=== PATIENT | female | born 1975 | race Caucasian/White ===

== ENCOUNTER 2018-05-22 08:57 | Inpatient (IN) ==
[2018-05-22] MEDS ORDERED: Metoprolol Tartrate 25 MG Tablet PO SCH (09:58)
[2018-05-22] MEDS ORDERED: Chlorhexidine Gluconate 2% 1 Pack (2 Cloths) TOPICAL SCH (09:58)
[2018-05-22] MEDS ORDERED: Sodium Chlor 0.9% Inj 500 ML IV.SIG SCH (10:00)
[2018-05-22] MEDS ORDERED: ceFAZolin Inj 3,000 MG in Sodium Chlor 0.9% Inj 100 ML IV.SIG SCH (11:00)
[2018-05-22] MEDS ORDERED: Bupivacaine/Epinephrine 0.5% Inj 50 ML Vial ONE (14:26)
[2018-05-22] MEDS ORDERED: Phenylephrine/NS 1000 MCG/10ML Syringe IV.PUSH ONE (14:40)
[2018-05-22] MEDS ORDERED: Lidocaine PF 1% Inj 5 ML Syringe OTHER ONE (14:40)
[2018-05-22] MEDS ORDERED: Glycopyrrolate Inj 1 MG/5 ML Syringe IV.PUSH ONE (14:40)
[2018-05-22] MEDS ORDERED: Neostigmine Inj 5 MG/5 ML Syringe IV.PUSH ONE (14:40)
[2018-05-22] MEDS ORDERED: ceFAZolin 2 GM Premix Inj 2 GM/50 ML PIGGYBACK IV.SIG ONE (15:10)
[2018-05-22] MEDS ORDERED: Post-op Orders (for Pharmacy) OTHER STA (16:38)
[2018-05-22] MEDS ORDERED: diphenhydrAMINE HCl 12.5 MG/5 ML Elixir UDC PO PRN (16:38)
[2018-05-22] MEDS ORDERED: Naloxone Inj 0.4 MG/ML Vial IV.PUSH PRN (16:45)
[2018-05-22] MEDS ORDERED: Morphine Inj 30 MG/30 ML PCA.VIAL PCA PRN (16:45)
[2018-05-22] MEDS ORDERED: fentaNYL Citrate Inj 100 MCG/2 ML Ampul ONE (17:04)
[2018-05-22] MEDS ORDERED: *Ondansetron Inj 4 MG/2 ML Vial PERIprocedural Use ONLY ONE (17:06)
[2018-05-22] MEDS ORDERED: *Promethazine Inj 25 MG/ML Vial PERIprocedural use ONLY ONE (17:17)
[2018-05-22] MEDS ORDERED: Scopalamine 1.5 MG Patch T-DERMAL ONE (17:38)
[2018-05-22] MEDS ORDERED: Enoxaparin Inj 40 MG/0.4 ML Syringe SQ SCH (18:00)
[2018-05-22] MEDS: KCL 20 mEq/D5W/NaCl 0.45% Inj 1,000 ML IV.CONT SCH (18:24)
[2018-05-22] MEDS ORDERED: ceFAZolin 1 GM Premix Inj 1 GM/50 ML PIGGYBACK IV.SIG SCH (21:00)
[2018-05-23] MEDS: ceFAZolin 1 GM Premix Inj 1 GM/50 ML PIGGYBACK IV.SIG SCH ×3 (00:17→19:01)
[2018-05-23] MEDS: KCL 20 mEq/D5W/NaCl 0.45% Inj 1,000 ML IV.CONT SCH ×3 (02:56→17:18)
[2018-05-23 06:45] LABS: Baso % (Auto) 0.3 % (0.0-2.0); Eos % (Auto) 0.1 % (0.0-4.0); Hemoglobin 12.9 gm/dL (11.6-15.3); Lymph % (Auto) 18.4 % (9.0-44.0); Mean Corpuscular HGB Conc 34.8 % (32.0-36.0); Mean Corpuscular Hemoglobin 29.2 pg (27.0-34.0); Mean Corpuscular Volume 83.8 fL (80.0-100.0); Mean Platelet Volume 9.7 fL (7.0-11.0); Mono # (Auto) 0.8 th/mm3 (0.0-0.9); Neut # (Auto) 8.1 th/mm3 (1.8-7.7); Neut % (Auto) 74.2 % (16.0-70.0); Platelet Count 265 th/mm3 (150-450); Red Blood Count 4.41 mil/mm3 (4.00-5.30); Red Cell Distribution Width 13.9 % (11.6-17.2); White Blood Count 10.9 th/mm3 (4.0-11.0)
[2018-05-23 07:00] LABS: Calcium 8.5 mg/dL (8.5-10.1); Carbon Dioxide 28.5 meq/L (21.0-32.0); Magnesium 2.2 mg/dL (1.5-2.5)
--- NOTE | 2018-05-23 15:34 | P.PNGS ---
Subjective Patient reports: tolerating liquids well (denies SOB, palpitations or chest pain. Nausea and pain are well controlled. ) Physical Exam Vital signs: Vital Signs 05/22/18 16:57 05/22/18 17:00 05/22/18 17:15 Temperature 97.6 F Pulse Rate 66 65 58 L Respiratory Rate 10 L 11 L 15 Blood Pressure 123/59 L 115/59 L 119/56 L Pulse Oximetry 95 97 96 05/22/18 17:30 05/22/18 17:45 05/22/18 18:00 Temperature Pulse Rate 58 L 51 L 64 Respiratory Rate 15 20 20 Blood Pressure 114/55 L 109/59 L 117/56 L Pulse Oximetry 96 94 L 96 05/22/18 18:15 05/22/18 18:45 05/22/18 19:15 Temperature 97.8 F Pulse Rate 62 60 64 Respiratory Rate 18 18 18 Blood Pressure 112/58 L 118/55 L 113/57 L Pulse Oximetry 96 96 96 05/22/18 20:00 05/22/18 21:29 05/23/18 00:00 Temperature 97.3 F L 97.7 F Pulse Rate 53 L 68 Respiratory Rate 18 19 Blood Pressure 119/65 138/66 Pulse Oximetry 96 98 96 05/23/18 04:00 05/23/18 08:00 05/23/18 08:55 Temperature 98.1 F 98.6 F Pulse Rate 67 78 Respiratory Rate 19 16 Blood Pressure 140/65 116/65 Pulse Oximetry 94 L 93 L 93 L 05/23/18 11:40 Temperature 98.2 F Pulse Rate 49 L Respiratory Rate 16 Blood Pressure 131/63 Pulse Oximetry 99 Intake & Output 05/22/18 05/23/18 05/23/18 18:59 06:59 18:59 Intake Total 1300 / 1300 1820 / 1820 1150 / 1150 Balance 1300 / 1300 1820 / 1820 1150 / 1150 Weight 136.8 kg 141.1 kg Intake: IV 200 / 200 1400 / 1400 1150 / 1150 D5W/1/2NS + KCL 20 mEq Inj 1, 1000 / 1000 1000 / 1000 000 ML @ 125 mls/hr IV.CONT . Q8H LORNA Rx#:[id number] Ofirmev Inj 1,000 mg In 100 ml 100 / 100 100 / 100 @ 400 mls/hr IV.SIG STATISTICS TEACHER LORNA Rx#:[id number] Ancef 1 GM Premix Inj 1 gm In 100 / 100 50 ml @ 100 mls/hr IV.SIG Q8H LORNA Rx#:[id number] Flagyl 500 MG Inj 100 ML @ 200 100 / 100 200 / 200 mls/hr IV.SIG Q8H LORNA Rx#: [id number] Oral 420 / 420 Anesthesia Amount 1100 / 1100 Other: # Voids 1 Weight On Admission 3 kg - Constitutional no acute distress - Routine Neck Exam Present: supple - Routine Respiratory Exam Present: CTA bilaterally - Routine Cardiovascular Exam Present: RRR, S1, S2 - Routine Abdominal Exam Present: soft Comments: normal postoperative tenderness, laproscopic sites CDI Results - Labs 05/23/18 05:56 05/23/18 05:56 Laboratory Results - last 24 hr 05/23/18 05/23/18 05:56 05:56 WBC 10.9 RBC 4.41 Hgb 12.9 Hct 37.0 MCV 83.8 MCH 29.2 MCHC 34.8 RDW 13.9 Plt Count 265 MPV 9.7 Neut % (Auto) 74.2 H Lymph % (Auto) 18.4 [place] % (Auto) 7.0 Eos % (Auto) 0.1 Baso % (Auto) 0.3 Neut # (Auto) 8.1 H Lymph # (Auto) 2.0 [place] # (Auto) 0.8 Eos # (Auto) 0.0 Baso # (Auto) 0.0 WBC Differential . Differential Comment Auto diff final Sodium 140 Potassium 4.0 Chloride 103 Carbon Dioxide 28.5 Anion Gap 9 BUN 11 Creatinine 0.79 Estimated GFR 79 L Random Glucose 110 H Calcium 8.5 Magnesium 2.2 Assessment and Plan - Assessment (1) Gastric bypass status for obesity Code(s): Z98.84 - Bariatric surgery status Status: Acute Plan: Tolerating clear liquids well advance to 60 ml every 30 min. Ambulate at least four times today D/C JOB PRINTER pump transition to oral pain meds. (2) HTN (hypertension) Code(s): I10 - Essential (primary) hypertension Status: Chronic Plan: Controlled currently monitor. (3) Sleep apnea Code(s): G47.30 - Sleep apnea, unspecified Status: Chronic Plan: Continue use of home CPAP machine - Plan POD #1 laproscopic RNY Doing well. Code Status: full Discussed Condition With: patient Discharge Planning: tomorrow if doing well (2) HTN (hypertension) Qualifiers: Hypertension type: essential hypertension Qualified Code(s): I10 - Essential (primary) hypertension
[2018-05-23] MEDS: Acetaminophen-HYDROcodone 325/7.5 Liq 15 ML UDC PO PRN (18:23)
[2018-05-23] MEDS ORDERED: Enoxaparin Inj 40 MG/0.4 ML Syringe SQ SCH (21:00)
[2018-05-24] MEDS: Acetaminophen-HYDROcodone 325/7.5 Liq 15 ML UDC PO PRN ×2 (00:30→11:30)
[2018-05-24] MEDS: KCL 20 mEq/D5W/NaCl 0.45% Inj 1,000 ML IV.CONT SCH ×2 (01:18→08:48)
[2018-05-24 12:31] VITALS: BP 141/71; PULSE 59; RESP 18; TEMP 98.7; O2SAT 99
--- NOTE | 2018-05-24 15:50 | P.PNGS ---
Subjective Patient reports: feels better, still having pain, tolerating liquids well, flatus (Pain controlled with hycet, denies nausea, SOB, palpitations or dyspnea. ) Physical Exam Vital signs: Vital Signs 05/23/18 16:00 05/23/18 20:00 05/24/18 00:00 Temperature 98.5 F 98.2 F 98 F Pulse Rate 72 68 63 Respiratory Rate 16 17 17 Blood Pressure 117/62 115/58 L 111/60 Pulse Oximetry 99 93 L 95 05/24/18 04:00 05/24/18 08:00 05/24/18 11:56 Temperature 97.9 F 97.9 F Pulse Rate 63 60 Respiratory Rate 17 16 Blood Pressure 123/60 131/70 Pulse Oximetry 95 97 95 05/24/18 12:00 Temperature 98.7 F Pulse Rate 59 L Respiratory Rate 18 Blood Pressure 141/71 H Pulse Oximetry 99 Intake & Output 05/23/18 05/24/18 05/24/18 18:59 06:59 18:59 Intake Total 1250 / 1250 1480 / 1480 1000 / 1000 Balance 1250 / 1250 1480 / 1480 1000 / 1000 Weight 141.1 kg Intake: IV 1250 / 1250 1000 / 1000 1000 / 1000 D5W/1/2NS + KCL 20 mEq Inj 1, 1000 / 1000 1000 / 1000 1000 / 1000 000 ML @ 125 mls/hr IV.CONT . Q8H LORNA Rx#:[id number] Flagyl 500 MG Inj 100 ML @ 200 100 / 100 mls/hr IV.SIG Q8H LORNA Rx#: [id number] Oral 480 / 480 Other: # Voids 2 - Constitutional no acute distress - Routine Neck Exam Present: supple - Routine Respiratory Exam Present: CTA bilaterally - Routine Cardiovascular Exam Present: RRR, S1, S2 - Routine Abdominal Exam Present: soft Comments: mildly distended, normoactive BS, laproscopic sites WNL. Soft. Results - Labs 05/23/18 05:56 05/23/18 05:56 Assessment and Plan - Assessment (1) Gastric bypass status for obesity Code(s): Z98.84 - Bariatric surgery status Status: Acute Plan: Advance to full liquid diet and start protein supplementation in the AM. Follow up in one week in office with PRODUCTION CONTROL SCHEDULER (2) HTN (hypertension) Code(s): I10 - Essential (primary) hypertension Status: Chronic Plan: Monitor daily at home and notify office if Bp greater than 140/90. Hold BP medication for now. (3) Sleep apnea Code(s): G47.30 - Sleep apnea, unspecified Status: Chronic Plan: Continue use of home CPAP machine - Plan POD #2 laproscopic RNY Doing well. D/C home today. Discharge Planning: today (2) HTN (hypertension) Qualifiers: Hypertension type: essential hypertension Qualified Code(s): I10 - Essential (primary) hypertension
--- NOTE | 2018-05-31 17:40 | MP ---
cc: Aguilar Olivera MD DATE OF OPERATION: 05/22/2018 PREOPERATIVE DIAGNOSES: Morbid obesity with a BMI of 47, complicated by essential hypertension, hypercholesterolemia. POSTOPERATIVE DIAGNOSES: Morbid obesity with a BMI of 47, complicated by essential hypertension, hypercholesterolemia. PROCEDURE PERFORMED: Laparoscopic Judson-en-Y gastric bypass, 100 cm Judson limb, antegastric, antecolic. SURGEON: Aguilar Olivera MD ANESTHESIA: General endotracheal anesthesia. ESTIMATED BLOOD LOSS: Scant. FINDINGS: Fatty liver. SPECIMENS: None. COMPLICATIONS: None. OPERATION: The patient was brought to the operating room and placed on the operating table in supine position, bilateral sequential inflation device placed on lower extremities, general anesthesia instituted, antibiotics initiated. The abdomen was prepped and draped sterilely. A point 18-cm distal to the xiphoid in the midline anesthetized with 0.25% Marcaine with epinephrine. The skin incision was made, a 5-mm OptiView port placed under direct vision and pneumoperitoneum was created. Under direct vision a 5-mm left upper quadrant, 12-mm left upper quadrant, 12-mm right upper quadrant and 5-mm right upper quadrant ports were placed. Prior to placement of all ports, the skin and peritoneum were anesthetized with 0.25% Marcaine with epinephrine. The patient's omentum was lifted into the upper abdomen. It was split down the middle to create a path for the Judson limb. The ligament of Treitz was identified, a point 40 cm distal identified. The small bowel was divided in this region using an [place] Flex stapler vascular load reinforced with SeamGuard. The distal segment was brought up for a distance of 100 cm, enterotomy created in this region, enterotomy in the biliopancreatic limb and a [id number] stapled jejunojejunostomy created in the usual manner. The mesenteric defect at the jejunojejunostomy was closed with 2-0 Surgidac suture in a running manner. The patient was placed in reverse Trendelenburg position with the left side up. The Stella-Flex retractor was placed. The left lobe of the liver was retracted. The angle of His was taken down bluntly, a point 5 cm distal to the GE junction along the lesser curve identified, the lesser sac entered using blunt dissection. The stomach was partitioned horizontally using an [place]-Flex stapler blue load, an additional firing taken directed towards the angle of His to completely divide the stomach. A gastrotomy created in the new stomach, enterotomy in the Judson limb and gastrojejunostomy created, stomal opening of 2 cm. An 18-[place] orogastric tube was placed across the anastomosis, the defect then closed in two layers of running 2-0 Vicryl. Prior to placement of the second layer, methylene blue instilled through the orogastric tube. There was no evidence of extravasation. Evicel was then placed over the gastrojejunostomy, jejunojejunostomy and all staple lines. The operative field inspected and hemostasis was present. The CO2 was released, all ports were removed. All skin incisions were closed with 4-0 Monocryl. The abdominal wall was cleaned and a sterile dressing placed. The patient was awakened and taken to the recovery room. MD GAURAV Moe/tameka , 05:08 PM , 05:15 PM
== END 2018-05-24 16:03 | disposition home or self-care (01) | DRG 621 ==
LOC: HSDI 08:57 → N07 19:36
PROVIDERS: ADMIT Surgery; ATTEND Surgery
CPT/HCPCS: 80048; 83735; 85025; 86850; 86900; 86901; 86923; 94150; J0131; J0690; J1650; J2250; J2270; J2370; J2405; J2550; J2704; J2710; J2765; J3010; J3480; J7120; J8501